=== PATIENT | male | born 2000 | race Caucasian/White ===

== ENCOUNTER 2022-04-16 13:38 | Emergency (ER) | payer SELFPAY ==
[2022-04-16 13:53] VITALS: BP 139/81; PULSE 106; RESP 18; TEMP 36.7; O2SAT 95; BMI 19.8
--- NOTE | 2022-04-16 15:48 | ED_ITS ---
HPI - Fall General Chief Complaint: Fall/Minor Trauma Stated Complaint: Fell Down the Stairs Last Night Time Seen by Provider: 04/16/22 15:35 History of Present Illness HPI Narrative: This 22-year-old male comes in with a laceration on the lateral aspect of the skin around his right eye. This occurred at about 1:00 a.m. last evening when he states that he fell down some stairs. He is wearing a walking boot on his left leg and states that he misstepped and fell down the stairs. 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 He states that he does not have a headache and did not lose consciousness when he fell down the stairs. He has a 1 cm linear laceration in the lateral aspect of the right upper eyelid. Related Data Home Medications Medication Instructions Recorded Confirmed No Known Home Medications 04/16/22 04/16/22 Allergies Allergy/AdvReac Type Severity Reaction Status Date / Time No Known Drug Allergies Allergy Verified 04/16/22 13:57 Review of Systems Status of ROS: Reports: 10 or more systems reviewed and unremarkable except as noted in History and below Narrative: Constitutional: No fevers, no weight gain or loss. Eyes: No discharge. He reports some blurry vision in his right eye from a previous injury in a competitive fight. HENT: No congestion, no sore throat, no ear pain. Cardiovascular: No chest pain, no palpitations. Respiratory: No shortness of breath, no wheezes, no cough. Gastrointestinal: No abdominal pain, no vomiting, no diarrhea. Genitourinary: No dysuria, no hematuria. Musculoskeletal: Normal range of motion. His wearing a walking boot on his left leg. Skin: No rashes, no pruritis. Neurological: No dizziness, weakness, sensory change, speech change. Endo/Heme/Allergies: No bruising or bleeding. No polydipsia. Pysch: no suicidality, no anxiety, no insomnia. All other systems reviewed and are negative. Exam Narrative: Exam Narrative: Constitutional: Well-developed, well-nourished, no acute distress. HEENT: Numerous bruises on his face and forehead. These appear older than the injury that occurred last night. He has a 1 cm linear laceration in the right upper eyebrow. Neck: Normal range of motion. Nontender. Supple. Heart: Intact distal pulses. Lungs: No chest discomfort. No wheezes, rhonchi, or rales. Abdomen: Nontender. Back: Normal range of motion. Extremities: Normal range of motion. Walking boot on the left leg. Skin: Intact. No rash. Warm. No erythema or pallor. Neurologic: No altered sensation. No weakness. Alert and oriented. Psychiatric: No suicidality. No anxiety or depression. No insomnia. Nursing notes and vitals signs are reviewed. Const: Vital Signs, click to edit/add: Vital Signs - 24 hr 04/16/22 13:53 Temperature 98.1 F Pulse Rate [Pulse Oximeter] 106 H Respiratory Rate 18 Blood Pressure [Ri t Upper Arm] 139/81 Pulse Oximetry 95 Oxygen Delivery Me thod Room Air Course Vital Signs Vital signs: Initial Vital Signs Temperature 98.1 F 04/16/22 13:53 Temperature Source Temporal Artery Scan 04/16/22 13:53 Pulse Rate 106 H 04/16/22 13:53 Pulse Rhythm 04/16/22 13:53 Respiratory Rate 18 04/16/22 13:53 Blood Pressure 139/81 04/16/22 13:53 Blood Pressure Mean 100 04/16/22 13:53 Blood Pressure Position Sitting 04/16/22 13:53 Pulse Oximetry 95 04/16/22 13:53 Oxygen Delivery Method 04/16/22 13:53 Vital Signs Temperature 98.1 F 04/16/22 13:53 Pulse Rate 106 H 04/16/22 13:53 Respiratory Rate 18 04/16/22 13:53 Blood Pressure 139/81 04/16/22 13:53 Pulse Oximetry 95 04/16/22 13:53 Oxygen Delivery Method 04/16/22 13:53 Temperature 98.1 F 04/16/22 13:53 Pulse Rate 106 H 04/16/22 13:53 Respiratory Rate 18 04/16/22 13:53 Blood Pressure 139/81 04/16/22 13:53 Pulse Oximetry 95 04/16/22 13:53 Oxygen Delivery Method 04/16/22 13:53 MDM - Fall MDM Narrative Medical decision making narrative: This patient comes in for attention to a laceration to the lateral aspect of his right upper eyelid. This wound is approximately 15 hours old and has begun to heal. I explained that we typically do not repair wounds after 12 hours as the wrists may be more than the benefit. The wound was cleansed and I did place a Steri-Strips to hold the wound edges together yet allow for drainage if needed. Instructions were given regarding wound care. Discharge Plan Discharge Clinical Impression: Eyelid laceration, right Patient Disposition: Home, Self-Care Condition: Stable Additional Instructions: Keep wound clean and dry. Use [id number] medicines as needed and directed. Follow up with MD or return if worsening. Prescriptions: No Action No Known Home Medications Stand Alone Forms: Eye-Fi Info Instructions
--- NOTE | 2022-04-16 16:10 | ED.NURSE ---
dr. morrow placed 1 steristrip to R eyelid scratch
== END 2022-04-16 16:12 | disposition home or self-care (01) ==
LOC: ED 15:58
PROVIDERS: Emergency Provider Emergency Medicine Emergency Medical Services; PCP Family Medicine
DX: S01.111A Laceration without foreign body of right eyelid and periocular area, initial encounter (principal); W10.8XXA Fall (on) (from) other stairs and steps, initial encounter; Y93.9 Activity, unspecified; Y92.9 Unspecified place or not applicable; Y99.9 Unspecified external cause status
CPT/HCPCS: 99282; 99284